=== PATIENT | male | born 1965 | race African-American/Black ===

== ENCOUNTER 2018-10-21 12:09 | Emergency (ER) | payer OTHER ==
[~2018-10-21] VITALS: Ht 182.9 cm; Wt 92.5 kg
[2018-10-21 12:23] VITALS: BP 170/120
[2018-10-21] MEDS ORDERED: ACETAMINOPHEN ES 500 MG TABLET PO ONE (12:30)
[2018-10-21] MEDS ORDERED: ACETAMINOPHEN ES 500 MG TABLET ONE (12:32)
== END 2018-10-21 13:39 | disposition home or self-care (01) ==
LOC: ER 12:12
DX: S82.51XA Displaced fracture of medial malleolus of right tibia, initial encounter for closed fracture (principal); S82.831A Other fracture of upper and lower end of right fibula, initial encounter for closed fracture; Z98.890 Other specified postprocedural states; V49.9XXA Car occupant (driver) (passenger) injured in unspecified traffic accident, initial encounter; Y93.89 Activity, other specified; Y92.410 Unspecified street and highway as the place of occurrence of the external cause; Y99.8 Other external cause status
CPT/HCPCS: 29515; 73610; 99283; A4606; Z7610